=== PATIENT | female | born 1950 | race Caucasian/White ===

== ENCOUNTER 2019-02-21 02:41 | Emergency (ER) | payer SELFPAY ==
[~2019-02-21] VITALS: Ht 154.9 cm; Wt 83.9 kg
[2019-02-21 02:47] VITALS: Ht 154.9 cm; Wt 83.9 kg
[2019-02-21 04:07] VITALS: BP 183/85
== END 2019-02-21 04:07 | disposition home or self-care (01) ==
LOC: ED 02:41
DX: S01.111A Laceration without foreign body of right eyelid and periocular area, initial encounter (principal); I10 Essential (primary) hypertension; E11.9 Type 2 diabetes mellitus without complications; W20.8XXA Other cause of strike by thrown, projected or falling object, initial encounter; Y93.89 Activity, other specified; Y92.89 Other specified places as the place of occurrence of the external cause; Y99.8 Other external cause status